=== PATIENT | female | born 1965 | race Caucasian/White ===

== ENCOUNTER 2022-07-27 11:03 | Emergency (ER) | payer OTHER, SELFPAY ==
[2022-07-27] VITALS (9 sets, daily range): BP systolic 123–168; BP diastolic 51–93; PULSE 63–89; RESP 17–18; TEMP 36.8; O2SAT 93–98; BMI 29.8
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
[2022-07-27 11:57] LABS: Chloride 102 mmol/L (98-107); Potassium 3.7 mmoL/L (3.5-5.1); Sodium 139 mmol/L (136-145)
[2022-07-27 12:00] LABS: Alanine Aminotransferase 21 U/L (12-78); Albumin Level 4.1 g/dl (3.5-5.0); Albumin/Globulin Ratio 1.1 (1.1-1.8); Alkaline Phosphatase 91 U/L (38-126); Anion Gap 9.7 mEq/L (5-15); Aspartate Amino Transferase 35 U/L (14-36); Bilirubin,Total 0.5 mg/dl (0.2-1.3); Blood Urea Nitrogen 13 mg/dl (7-17); Calcium 8.1 mg/dl (8.4-10.2); Carbon Dioxide 31 mmol/L (22.0-30.0); Creatinine Clearance Estimated 100 mL/min (50-200); Estimated Glomerular Filt Rate 73 ml/min (>60); GFR (African American) 89 ML/MIN (>60); Globulin 3.6 g/dL (1.3-3.2); Glucose 89 mg/dl (74-100); Lipase 104 U/L (23-300); Total Protein,Serum 7.7 g/dl (6.3-8.2)
[2022-07-27 12:01] LABS: Basophils % 0.6 % (0.1-2.0); Eosinophils # 0.2 K/mm3 (0.0-0.4); Eosinophils % 2.5 % (0.1-12.0); Hemoglobin 13.6 g/dL (12.2-16.2); Lymphocytes % 34.1 % (10-50); Mean Corpuscular HGB Conc 32.5 g/dL (31.8-35.4); Mean Corpuscular Hemoglobin 28.8 pg (27.0-31.2); Mean Corpuscular Volume 88.8 fl (81-99); Monocytes # 0.3 K/mm3 (0.1-1.0); Monocytes % 4.8 % (1.7-9.3); Neutrophils # 3.4 K/mm3 (1.8-7.8); Neutrophils % 57.9 % (37.0-80.0); Platelet Count 237 K/mm3 (142-424); Red Blood Count 4.74 M/mm3 (4.20-5.40); Red Cell Distribution Width 13.7 % (11.5-17.5); White Blood Count 5.8 K/mm3 (4.8-10.8)
[2022-07-27 12:09] LABS: Activated Partial Thrombo Time 27.1 seconds (22.8-30.6); Prothrombin Time 9.8 seconds (10.1-12.5)
--- NOTE | 2022-07-27 12:55 | PC.NURSE ---
Pt in CT
--- NOTE | 2022-07-27 13:17 | PC.NURSE ---
Pt assisted on bed muñiz.
== END 2022-07-27 15:39 | disposition home or self-care (01) ==
PROVIDERS: Emergency Provider Student in an Organized Health Care Education/Training Program
DX: S16.1XXA Strain of muscle, fascia and tendon at neck level, initial encounter (principal); S20.211A Contusion of right front wall of thorax, initial encounter; V49.40XA Driver injured in collision with unspecified motor vehicles in traffic accident, initial encounter
CPT/HCPCS: 70450; 70496; 70498; 71275; 72125; 72128; 72131; 73030; 74174; 80053; 83690; 85025; 85610; 85730; 96360; 96374; 96375; 99285; J2405; Q9967